=== PATIENT | female | born 1935 | race Caucasian/White ===

== ENCOUNTER 2017-07-09 06:20 | Day surgery (SDC) | payer OTHER, MEDICARE ==
[~2017-07-09] VITALS: Ht 167.6 cm; Wt 90.7 kg
[~2017-07-09 06:20] MED LIST: ALBUTEROL SULF8.5 GM IH; CARVEDILOL12.5 MG PO; CARVEDILOL25 MG PO; CELECOXIB200 MG PO; COZAAR50 MG PO; DIOVAN80 MG PO; ELIQUIS5 MG PO; FUROSEMIDE40 MG; FUROSEMIDE40 MG PO; K-Dur PO; LISINOPRIL40 MG PO; LOVASTATIN20 MG PO; OMEPRAZOLE40 M1 PO; POTASSIUM CHLO10 ME4 PO; POTASSIUM CHLO10 MEQ PO; PROVENTIL,2.5 MG/3 M IH; Pravachol PO; Protonix PO; SENNA-TIME S T1 EACH PO; SERTRALINE HCL50 MG; SYMBICORT60 INHALAT; TYLENOL REGULA325 MG PO; ULTRAM50 MG PO; VFEND200 MG PO; WARFARIN SODIUM2 MG PO
[2017-07-09 07:25] VITALS: BP 163/100
[2017-07-09 07:31] VITALS: BP 163/100
[2017-07-09 13:02] VITALS: BP 114/86
[2017-07-09 16:16] VITALS: BP 155/75
[2017-07-09 20:30] VITALS: BP 119/65
[2017-07-09 20:32] VITALS: BP 119/65
[2017-07-10 00:07] VITALS: BP 122/87
[2017-07-10 03:41] VITALS: BP 118/56
[2017-07-10 07:26] VITALS: BP 120/57
[2017-07-10] MEDS ORDERED: TIZANIDINE HCL4 MG PO (08:02)
[2017-07-10] MEDS ORDERED: HYDROCODON-ACE1 EAC7 PO (08:02)
== END 2017-07-10 09:35 | disposition home or self-care (01) ==
LOC: SDC 06:20 → 2SOUTH 10:53 → ENRESERV 10:55 → 2EAST 13:15 → SDC 15:07 → 2EAST 07-10 09:35
PROC: 00NY0ZZ Release Lumbar Spinal Cord, Open Approach (ICD-10-PCS; principal; 2017-07-09)
DX: M47.816 Spondylosis without myelopathy or radiculopathy, lumbar region (principal); M48.062 Spinal stenosis, lumbar region with neurogenic claudication; R29.6 Repeated falls; M41.9 Scoliosis, unspecified; M53.3 Sacrococcygeal disorders, not elsewhere classified; I10 Essential (primary) hypertension; J44.9 Chronic obstructive pulmonary disease, unspecified; K21.9 Gastro-esophageal reflux disease without esophagitis; Z79.01 Long term (current) use of anticoagulants
CPT/HCPCS: 72100; 76000; G0378; J0131; J0690; J1100; J1170; J2405; J2550; J2710; J2930; J3010; J3480; J7643; Q0175; S0020